=== PATIENT | female | born 1975 | race Caucasian/White ===

== ENCOUNTER 2021-11-13 19:26 | Emergency (ER) | payer MEDICAID ==
[2021-11-13] MEDS: Ketorolac 30 MG/ML SDV IM ONE (22:06)
== END 2021-11-13 22:27 | disposition home or self-care (01) ==
LOC: JP.ED 19:26
DX: K02.9 Dental caries, unspecified (principal); E78.00 Pure hypercholesterolemia, unspecified; F17.210 Nicotine dependence, cigarettes, uncomplicated; Z88.8 Allergy status to other drugs, medicaments and biological substances; Z79.899 Other long term (current) drug therapy; Z86.16 Personal history of COVID-19
CPT/HCPCS: 96372; 99282; J1885